=== PATIENT | male | born 1935 | race Caucasian/White ===

== ENCOUNTER 2016-06-11 13:00 | Inpatient (IN) | payer MEDICARE, BC ==
[~2016-06-11] VITALS: Ht 182.9 cm; Wt 104.5 kg
--- NOTE | ~2016-06-11 | HEMODYNAMI ---
PATIENT:MARY MARTINES MEDICAL RECORD: [id number] : 35 LOCATION:[facility] D.2120 ADMISSION DATE: 06/12/16 Generatedon:06/13/20168:49 Patient name: MARY MARTINES Patient #: [id number] SSN: [id number] : 1935 Date of study: 06/13/2016 Page: Of Hemodynamic Procedure Report Patient Data Patient Demographics Procedure consent was obtained First Name: MARY Gender: Male Last Name: BOBBI : 1935 Patient #: [id number] Age: 81 year(s) Race: SSN: [id number] Additional ID: [id number] Contact details Address: [address] [place] [address] [place] State: [place] City: [place] Zip code: [address] Past Medical History Allergies: No known allergies Admission Admission Data Admission Date: 06/12/2016 Admission Time: 15:09 Arrival Date: 06/12/2016 Arrival Time: 15:09 Admit Source: Other Insurance Payor: Medicare Room #: D.2120 Weight (lbs.): 231.49 Weight (kg.): 105 Lab Results Lab Result Date: 06/13/2016 Lab Result Time: 0:00 Biochemistry Name Units Result Min Max BUN mg/dl 1.2 *-(----)-- 7 18 Creatinine mg/dl 1.2 --(---*)-- 0.6 1.3 CBC Name Units Result Min Max Hemoglobin g/dl 15.8 --(--*-)-- 13.5 17.5 Procedure Procedure Types Cath Procedure PCI Procedure Coronary Stent Initial Miscellaneous Procedures Moderate Sedation up to 15 minutes Procedure Description Procedure Date Procedure Date: 06/13/2016 Procedure Start Time: 8:37 Procedure End Time: 8:44 Procedure Staff Name Function Hector Beltre MD Performing Physician Sun Weber RT Scrub Dahiana Toussaint RN Nurse Marion Kaye RT Monitor Procedure Data Cath Procedure Fluoroscopy Diagnostic fluoroscopy Total fluoroscopy Time: 2.2 time: 2.2 min min Diagnostic fluoroscopy Total fluoroscopy dose: dose: 151.07 mGy 151.07 mGy Contrast Material Contrast Material Type Amount (ml) Isovue 370 46 Entry Location Entry Primary Successful Side Size Upsize Upsize Entry Closure Succes sful Closure Location (Fr) 1 (Fr) 2 (Fr) Remarks Device Remarks Femoral Right 6 Fr Exoseal artery Short Estimated blood loss: 5 ml Procedure Complications No complications Procedure Medications Medication Administration Route Dosage Oxygen NC 2 l/min Heparin Flush Bag added to field 2 bags (1000units/500ml NS) Lidocaine 2% added to field 20 Versed I.V. 1 mg Fentanyl I.V. 50 mcg Heparin Bolus I.V. 4000 units Fentanyl I.V. 50 mcg Versed I.V. 1 mg Hemodynamics Rest HGB: 15.8 (g/dl) Heart Rate: 79 (bpm) Snapshots Pre Cath Intra NCS Post Cath Vital Signs Time Heart Resp SPO2 NIBP (mmHg) Rhythm Pain Sedation Rate (ipm) (%) Status Level (bpm) 8:20:55 78 20 97 183/107(162) NSR 0 (11) 10(A) , No pain 8:25:20 66 19 96 165/93(147) NSR 0 (11) 10(A) , No pain 8:29:42 66 15 95 136/80(115) NSR 0 (11) 10(A) , No pain 8:34:04 60 14 95 140/74(114) NSR 0 (11) 10(A) , No pain 8:38:18 60 16 94 128/74(102) NSR 0 (11) 9(A) , No pain 8:42:34 65 15 95 123/66(95) NSR 0 (11) 9(A) , No pain 8:46:58 64 16 96 127/75(110) NSR 0 (11) 9(A) , No pain Medications Time Medication Route Dose Verified Delivered Reason Notes Effectiveness by by 8:21:29 Oxygen NC 2 Hector Dahiana Per physician l/min Patt Toussaint RN 8:27:23 Heparin Flush added 2 Hector Young used for Bag to bags Patt Beltre MD procedure (1000units/500ml field NS) 8:27:33 Lidocaine 2% added 20ml Hector Hector used for to vial Patt Beltre MD procedure field 8:35:01 Fentanyl I.V. 50 Hector Dahiana for sedation mcg Patt Toussaint RN 8:35:05 Versed I.V. 1 mg Hector Dahiana for sedation Patt Toussaint RN 8:37:37 Versed I.V. 1 mg Hector Dahiana for sedation Patt Toussaint RN 8:37:49 Fentanyl I.V. 50 Hector Dahiana for sedation mcg Patt Toussaint RN 8:38:05 Heparin Bolus I.V. 4000 Hector Dahiana for dose units Patt Toussaint RN anticoagulation verified with dr beltre Procedure Log Time Note 8:05:52 Sun Counts RT(R) sent for patient. Start room use. 8:15:57 Time tracking: Regular hours 8:16:00 Plan of Care:Hemodynamics will remain stable., Cardiac rhythm will remain stable., Comfort level will be maintained., Respiratory function will remain adequate., Patient/ family verbilizes understanding of procedure., Procedure tolerated without complication., Recovers from procedure without complications.. 8:16:07 Patient received from PCU to CCL 3 Alert and oriented. Tansferred to table in Supine position. 8:16:08 Warm blankets applied, and jakob hugger turned on for patient comfort. 8:16:08 Correct patient and procedure confirmed by team. 8:16:10 Signed procedure consent form obtained from patient. 8:16:10 ECG and BP/O2 sat monitors applied to patient. 8:16:12 Full Disclosure recording started 8:19:32 Vital chart was started 8:20:48 Baseline sample Acquired. 8:20:53 Rhythm: sinus rhythm 8:21:06 H&P Date Dictated: 06/13/2016 Within 30 days and on chart., H&P Addendum completed by physician on day of procedure. (MUST COMPLETE FOR ALL OUTPATIENTS). 8:21:07 Pre-procedure instructions explained to patient. 8:21:07 Pre-op teaching completed and patient verbalized understanding. 8:21:09 Family in waiting room. 8:21:11 Patient NPO since Midnight. 8:21:19 Is the patient allergic to Iodine/contrast media? No. 8:21:21 Was the patient premedicated? No 8:21:25 Is patient on blood thinner?Yes 8:21:27 ACC The patient was administered the following blood thiners within the last 24 hours: ACCPlavix 8:21:29 Oxygen 2 l/min NC was given by Dahiana Toussaint RN; Per physician; 8:21:48 Patient diabetic? No. 8:21:51 Previous problem with sedation/anesthesia? No ? 8:21:54 Snore? Yes 8:22:02 Sleep apnea? No 8:22:03 Deviated septum? No 8:22:04 Opens mouth fully? Yes 8:22:05 Sticks out tongue? Yes 8:22:06 Airway obstruction? No ? 8:22:12 Dentures? Yes in tight 8:22:16 Pre procedure: right dorsailis pedis pulse 1+ Palpable, but thready & weak; easily obliterated 8:22:19 Patient pain scale 0/10 ?. 8:22:24 IV patent on arrival in left forearm with 0.9% NaCl at [facility]. 8:22:56 Lab Result : BUN 1.2 mg/dl 8:22:56 Lab Result : Creatinine 1.2 mg/dl 8:22:56 Lab Result : Hemoglobin 15.8 g/dl 8:23:03 Lab results completed and on chart. 8:23:20 Right groin area was prepped with chlora-prep and draped in sterile fashion 8:23:21 Alarms reviewed by R. N. 8:23:21 Sharps counted by scrub and verified by R.N. 8:25:31 Use device set Femoral Dx 8:25:32 Acist Syringe opened to sterile field. 8:25:35 Bag Decanter opened to sterile field. 8:25:37 Medline Cath Pack opened to sterile field. 8:25:38 St Jhonatan 260cm J .035 wire opened to sterile field. 8:25:42 Acist Hand Control opened to sterile field. 8:25:43 Acist Manifold opened to sterile field. 8:25:50 Tegaderm 4 x 4 opened to sterile field. 8:26:06 Rivera Whisper J 300cm 0.014 guide wire opened to sterile field. 8:26:07 Terumo 6Fr [place] Sheath opened to sterile field. 8:26:13 Merit BasixCompak Inflation Kit opened to sterile field. 8:27:23 Heparin Flush Bag (1000units/500ml NS) 2 bags added to field was given by Hector Beltre MD; used for procedure; 8:27:33 Lidocaine 2% 20ml vial added to field was given by Hector Beltre MD; used for procedure; 8:30:28 Physician paged 8:32:37 Zero performed for pressure channel P1 8:33:21 Zero performed for pressure channel P1 8:34:15 Physician arrived 8:34:16 --------ALL STOP TIME OUT------ 8:34:17 Final Timeout: patient, procedure, and site verified with staff and physician. All members of the team are in agreement. 8:34:19 Right groin site verified by team. 8:34:25 Physical assessment completed. ASA score P 2 - A patient with mild systemic disease as per Hector Beltre MD. 8:34:28 Sedation plan: IV Moderate Sedation Versed, Fentanyl 8:35:01 Fentanyl 50 mcg I.V. was given by Dahiana Toussaint RN; for sedation; 8:35:05 Versed 1 mg I.V. was given by Dahiana Toussaint RN; for sedation; 8:36:33 Cordis 6FR XBLAD 4.0 guide catheter opened to sterile field. 8:36:58 Procedure started. 8:37:01 Local anesthetic to right femoral artery with Lidocaine 2% by Hector Beltre MD.INITIAL ACCESS ONLY 8:37:09 A 6 Fr Short sheath was inserted into the Right Femoral artery 8:37:37 Versed 1 mg I.V. was given by Dahiana Toussaint RN; for sedation; 8:37:46 6 Fr xblad 4 guide catheter was inserted over the wire 8:37:49 Fentanyl 50 mcg I.V. was given by Dahiana Toussaint RN; for sedation; 8:38:00 LCA angiography performed. 8:38:05 Heparin Bolus 4000 units I.V. was given by Dahiana Toussaint RN; for anticoagulation; dose verified with dr beltre 8:38:09 whisper wire advanced. 8:38:13 Wire advanced across lesion. 8:40:03 Inflation Number: 1 A MedaPhortronic Resolute 2.5 X 14 stent was prepped and advanced across the Mid CX. The stent was deployed at 13 FEDE for 0:10 (min:sec). 8:40:50 Stent catheter was removed intact over wire. 8:41:35 Inflation Number: 2 A Medtronic Resolute 3.0 X 12 stent was prepped and advanced across the Mid CX. The stent was deployed at 13 FEDE for 0:10 (min:sec). 8:42:27 Stent catheter was removed intact over wire. 8:42:28 Wire removed. 8:42:28 Guide catheter removed. 8:42:45 Cordis 6Fr Exoseal opened to sterile field. 8:42:55 Sheath removed intact; hemostasis achieved with Exoseal to the Right Femoral artery. 8:42:56 Procedure ended.(Physican Out) 8:43:20 Fluoroscopy time 02.20 minutes. 8:43:28 Flurop Dose total: 151.07 8:43:28 Fluoroscopy dose: 151.07 mGy 8:43:36 Contrast amount:Isovue 370 46ml. 8:43:43 Sharps counted by scrub and verified by R.N. 8:43:46 Insertion/operative site no bleeding no hematoma. 8:43:53 Post-op/insertion site Right Femoral artery dressed using a 4 x 4 and Tegaderm. 8:43:56 Post right femoral artery:stable 8:43:58 Post Procedure Pulses reassessed and unchanged 8:44:03 Post procedure rhythm: unchanged. 8:44:06 Estimated blood loss: 5 ml 8:44:07 Post procedure instruction explained to patient.Patient verbalizes understanding. 8:44:08 Patient needs reinforcement of post procedure teaching. 8:44:42 Procedure and supply charges have been captured, reviewed, submitted and are correct. 8:44:47 Procedure Complication : No complications 8:44:49 Vital chart was stopped 8:44:50 See physician's report for complete and final results. 8:44:53 Report given to Med II. 8:44:55 Patient transfered to Med II with Stretcher. 8:44:58 Procedure ended. 8:44:58 Full Disclosure recording stopped 8:45:10 ACC-PCI Only Patient was given prescriptions, or instructed by Hector Beltre MD to start/continue the following medications upon discharge: Plavix 8:45:11 End room use (Document Last) 8:45:46 Procedure type changed to Cath procedure, PCI procedure, Coronary Stent Initial, Miscellaneous Procedures, Moderate Sedation up to 15 minutes 8:46:18 Admit Source: Other 8:46:21 Arrival Date: 06/12/2016 3:09:00 PM 8:46:28 Insurance Payor : Medicare Intervention Summary Intervention Notes Time ActionType Lesion and Equipment Action# Pressure Duration Attributes Used 8:40:03 Place stent Mid CX Medtronic 1 13 00:10 Resolute 2.5 X 14 stent 8:41:35 Place stent Mid CX Medtronic 2 13 00:10 Resolute 3.0 X 12 stent Device Usage Item Name Manufacture Quantity Catalog Hospital Part Current Minimal Lot# / Number Charge Number Stock Stock Serial# Code Acist Acist 1 [id number] 20 Syringe [employer] Bag Microtek 1 2002S 412057 79906 806830 5 [facility] Medline Cardinal 1 [id number] 695410 [address] Jhonatan 1 088346 382950 378507 412595 30 260cm J .035 wire Acist Hand Acist 1 76670 550538 990687 632858 5 Fly Fishing [employer] Acist Acist 1 12571 282516 923154 837414 5 Bet[employer] Tegaderm 4 3M 1 [id number] 752422 449634 646023 5 x 4 Rivera Rivera 1 [id number] 346040 523009 494376 5 Whisper J Vascular 300cm 0.014 guide wire Terumo 6Fr Terumo 1 [id number] 813497 944159 043663 40 [place] Sheath Merit Merit 1 [id number] 216554 609464 757267 15 [facility] Medical Inflation Kit Cordis 6FR Cardinal 1 [id number] 660789 600211 201707 3 XBLAD 4.0 Health guide catheter Medtronic Medtronic 1 [id number] [id number] 0 [id number] Resolute 2.5 X 14 stent Medtronic Medtronic 1 [id number] [id number] 7 [id number] Resolute 3.0 X 12 stent Cordis 6Fr Cardinal 1 [id number] 626776 557645 [id number] 10 [facility] Signature Audit [place] Stage Time Signature Unsigned Intra-Procedure 06/13/2016 Marion Kaye 8:48:56 AM RT(R) Signatures Monitor : Marion Kaye RT Signature : Date : Time : [facility] [address] [place] [address]
--- NOTE | ~2016-06-11 | HEMODYNAMI ---
PATIENT:MARY MARTINES MEDICAL RECORD: [id number] : 35 LOC[facility] [facility] [id number] ADMISSION DATE: 06/11/16 Generatedon:06/12/201611:34 Patient name: MARY MARTINES Patient #: [id number] SSN: : 1935 Date of study: 06/12/2016 Page: Of Hemodynamic Procedure Report Patient Data Patient Demographics Procedure consent was obtained First Name: MARY Gender: Male Last Name: BOBBI : 1935 Patient #: [id number] Age: 81 year(s) Race: Additional ID: [id number] Contact details Address: [address] [place] [address] [place] State: [place] City: [place] Zip code: [address] Past Medical History Allergies: No known allergies Admission Admission Data Admission Date: 06/11/2016 Admission Time: 13:00 Room #: [facility] Weight (lbs.): 231.49 Weight (kg.): 105 Lab Results Lab Result Date: 06/12/2016 Lab Result Time: 0:00 Biochemistry Name Units Result Min Max BUN mg/dl 16 --(---*)-- 7 18 Creatinine mg/dl 1.2 --(---*)-- 0.6 1.3 CBC Name Units Result Min Max Hemoglobin g/dl 15.8 --(--*-)-- 13.5 17.5 Procedure Procedure Types Cath Procedure Diagnostic Procedure LHC LHC w/Coronaries PCI Procedure Coronary Stent Initial Miscellaneous Procedures Moderate Sedation up to 30 minutes Procedure Description Procedure Date Procedure Date: 06/12/2016 Procedure Start Time: 11:14 Procedure End Time: 11:31 Procedure Staff Name Function Hector Beltre MD Performing Physician Richard Tena RT Scrub Michael Campos RN Nurse Amilcar Henderson RT Monitor Jp Jones RT Director Of Public Safety Procedure Data Cath Procedure Fluoroscopy Diagnostic fluoroscopy Total fluoroscopy Time: 5.9 time: 5.9 min min Diagnostic fluoroscopy Total fluoroscopy dose: 851 dose: 851 mGy mGy Contrast Material Contrast Material Type Amount (ml) Isovue 300 121 Entry Location Entry Primary Successful Side Size Upsize Upsize Entry Closure Gallagher ccessful Closure Location (Fr) 1 (Fr) 2 (Fr) Remarks Device Remarks Radial Right 6 Fr Mechanical artery Short Compression Diagnostic catheters Device Type Used For End Catheter Placement Terumo 5Fr Lc 110cm LV Angiography catheter Diagnostic Infinity 5Fr Right Coronary AR 2 MOD catheter Angiography Procedure Complications No complications Procedure Medications Medication Administration Route Dosage Oxygen NC 2 l/min Lidocaine 2% added to field 20 Heparin Flush Bag added to field 2 bags (1000units/500ml NS) 0.9% NaCl I.V. 100 ml/hr Versed I.V. 1 mg Fentanyl I.V. 50 mcg Radial Cocktail I.A. 1 syringe (Verapomil 2mg/Nitro 400mcg/Heparin 1500units) Versed I.V. 1 mg Fentanyl I.V. 50 mcg Heparin Bolus I.V. 4000 units Plavix P.O. 75 mg Hemodynamics Rest HGB: 15.8 (g/dl) Heart Rate: 75 (bpm) Snapshots Pre Cath Intra NCS Post Cath Vital Signs Time Heart Resp SPO2 etCO2 FS0idek NIBP (mmHg) Rhythm Pain Sedatio n Rate (ipm) (%) (mmHg) (mmHg) Status Level (bpm) 10:51:37 79 16 95 0 0 200/105(169) NSR 0 (11) 10(A) , No pain 10:56:06 72 21 95 0 0 194/116(131) NSR 0 (11) 10(A) , No pain 11:00:25 64 16 96 0 0 143/78(115) NSR 0 (11) 10(A) , No pain 11:04:40 55 17 94 0 0 124/76(96) NSR 0 (11) 10(A) , No pain 11:08:53 55 17 96 0 0 125/72(95) NSR 0 (11) 10(A) , No pain 11:13:10 57 16 93 0 0 121/65(82) NSR 0 (11) 9(A) , No pain 11:17:19 64 17 94 0 0 94/55(69) NSR 0 (11) 9(A) , No pain 11:21:25 64 16 93 0 0 108/60(86) NSR 0 (11) 9(A) , No pain 11:25:37 66 16 94 0 0 99/55(77) NSR 0 (11) 9(A) , No pain 11:29:39 69 16 94 0 0 109/76(97) NSR 0 (11) 10(A) , No pain Medications Time Medication Route Dose Verified Delivered Reason Note s Effectiveness by by 10:57:46 Oxygen NC 2 l/min Hector Buffie used for Patt Campos RN procedure 10:57:53 Lidocaine 2% added 20ml Hectortrino Young for local to vial Patt Beltre MD anesthetic field 10:57:58 Heparin Flush added 2 bags Hector Young used for Bag to Patt Beltre MD procedure (1000units/500ml field NS) 10:58:07 0.9% NaCl I.V. 100 Hectortrino Montgomeryie Per physician ml/hr Patt Campos RN 11:08:35 Versed I.V. 1 mg Hector Montgomeryie for sedation Patt Campos RN 11:08:42 Fentanyl I.V. 50 mcg Hector Montgomeryie for sedation Patt Campos RN 11:15:28 Radial Cocktail I.A. 1 Hector Hector for (Verapomil syringe Patt Beltre MD vasodilation 2mg/Nitro 400mcg/Heparin 1500units) 11:15:33 Versed I.V. 1 mg Hectortrino Montgomeryie for sedation Patt Campos RN 11:15:36 Fentanyl I.V. 50 mcg Hector Rodriguez for sedation Patt Campos RN 11:22:13 Heparin Bolus I.V. 4000 Hector Buffie for units Patt Campos RN anticoagulation 11:33:03 Plavix P.O. 75 mg Hector Buffie for Patt Campos RN antiplatelet therapy Procedure Log Time Note 10:30:41 Jp Jones RT(R) sent for patient. Start room use. 10:40:15 Diagnostic Cath Status : Elective 10:40:49 Time tracking: Regular hours 10:40:52 Plan of Care:Hemodynamics will remain stable., Cardiac rhythm will remain stable., Comfort level will be maintained., Respiratory function will remain adequate., Patient/ family verbilizes understanding of procedure., Procedure tolerated without complication., Recovers from procedure without complications.. 10:41:00 Patient received from PCU to CCL 1 Alert and oriented. Tansferred to table in Supine position. 10:41:00 Warm blankets applied, and jakob hugger turned on for patient comfort. 10:41:01 Correct patient and procedure confirmed by team. 10:41:02 Signed procedure consent form obtained from patient. 10:41:03 ECG and BP/O2 sat monitors applied to patient. 10:41:04 Full Disclosure recording started 10:49:16 Vital chart was started 10:49:27 Baseline sample Acquired. 10:49:30 Rhythm: sinus rhythm 10:50:42 H&P Date Dictated: 06/11/2016 Within 30 days and on chart.. 10:50:44 Pre-procedure instructions explained to patient. 10:50:44 Pre-op teaching completed and patient verbalized understanding. 10:50:49 Family in patients room. 10:50:50 Patient NPO since Midnight. 10:51:05 Patient allergic to No known allergies 10:51:08 Is the patient allergic to Iodine/contrast media? No. 10:51:11 Is patient on blood thinner?Yes 10:51:16 ACC The patient was administered the following blood thiners within the last 24 hours: ACCPlavix 10:51:16 ACC The patient was administered the following blood thiners within the last 24 hours: ACCAspirin 10:51:18 Patient diabetic? No. 10:51:19 ----Pre-sedation anethsthesia assessment.---- 10:51:24 Previous problem with sedation/anesthesia? No ? 10:51:27 Snore? Yes 10:51:28 Sleep apnea? No 10:51:30 Deviated septum? No 10:51:31 Opens mouth fully? Yes 10:51:33 Sticks out tongue? Yes 10:51:36 Airway obstruction? No ? 10:51:39 Dentures? No ? 10:51:43 Pre procedure: right dorsailis pedis pulse 1+ Palpable, but thready & weak; easily obliterated 10:51:46 Modified David's test Ulnar < 7 seconds 10:51:48 Patient pain scale 0/10 ?. 10:51:59 IV patent on arrival in left hand with 0.9% NaCl at 10ml/hr. 10:52:24 Lab Result : Creatinine 1.2 mg/dl 10:52:24 Lab Result : BUN 16 mg/dl 10:52:24 Lab Result : Hemoglobin 15.8 g/dl 10:52:27 Lab results completed and on chart. 10:52:31 Right Radial & Right Groin area was prepped with chlora-prep and draped in sterile fashion 10:52:32 Alarms reviewed by R. N. 10:52:32 Sharps counted by scrub and verified by R.N. 10:53:59 Patient Weight : 231.49 lbs 10:54:21 Use device set Radial Dx 10:54:22 Acist Syringe opened to sterile field. 10:54:22 Medline Cath Pack opened to sterile field. 10:54:23 Bag Decanter opened to sterile field. 10:54:23 Terumo 6Fr Slender Glidesheath opened to sterile field. 10:54:23 St Jhonatan 260cm J .035 wire opened to sterile field. 10:54:24 Acist Hand Control opened to sterile field. 10:54:24 Acist Manifold opened to sterile field. 10:54:25 Tegaderm 4 x 4 opened to sterile field. 10:57:46 Oxygen 2 l/min NC was given by Michael Campos RN; used for procedure; 10:57:53 Lidocaine 2% 20ml vial added to field was given by Hector Beltre MD; for local anesthetic; 10:57:58 Heparin Flush Bag (1000units/500ml NS) 2 bags added to field was given by Hector Beltre MD; used for procedure; 10:58:07 0.9% NaCl 100 ml/hr I.V. was given by Michael Campos RN; Per physician; 11:01:39 Zero performed for pressure channel P1 11:05:02 --------ALL STOP TIME OUT------ 11:05:03 Final Timeout: patient, procedure, and site verified with staff and physician. All members of the team are in agreement. 11:05:04 Right Radial & Right Groin site verified by team. 11:05:07 Physical assessment completed. ASA score P 2 - A patient with mild systemic disease as per Hector Beltre MD. 11:05:13 Sedation plan: IV Moderate Sedation Versed, Fentanyl 11:08:35 Versed 1 mg I.V. was given by Michael Campos RN; for sedation; 11:08:42 Fentanyl 50 mcg I.V. was given by Michael Campos RN; for sedation; 11:13:54 Procedure started. 11:14:07 Local anesthetic to right radial artery with Lidocaine 2% by Hector Beltre MD.INITIAL ACCESS ONLY 11:14:17 A 6 Fr Short sheath was inserted into the Right Radial artery 11:15:28 Radial Cocktail (Verapomil 2mg/Nitro 400mcg/Heparin 1500units) 1 syringe I.A. was given by Hector Beltre MD; for vasodilation; 11:15:33 Versed 1 mg I.V. was given by Michael Campos RN; for sedation; 11:15:36 Fentanyl 50 mcg I.V. was given by Michael Campos RN; for sedation; 11:15:52 A Terumo 5Fr Lc 110cm catheter was advanced over the wire and used for LV Angiography. 11:15:58 LV angiography performed. 11:16:07 LV hemodynamics recorded. 11:16:12 LV gram done using CORDERO 11:16:29 EF : 60 % 11:16:55 LCA angiography performed. 11:17:23 Rivera Nonstop Gamesisper J 300cm 0.014 guide wire opened to sterile field. 11:17:24 ADC TherapeuticsixCompak Inflation Kit opened to sterile field. 11:19:07 Catheter removed. 11:19:23 A Diagnostic Infinity 5Fr AR 2 MOD catheter was advanced over the wire and used for Right Coronary Angiography. 11:20:20 RCA angiography performed. 11:20:21 Catheter removed. 11:21:19 Cordis 6FR XBLAD 3.5 guide catheter opened to sterile field. 11:21:32 ACC PCI Site: mLAD has 90% stenosis. 11:21:34 ACC Pre-intervention LESTER Flow is 3. 11:22:13 Heparin Bolus 4000 units I.V. was given by Michael Campos RN; for anticoagulation; 11:24:03 6 Fr XBLAD 3.5 guide catheter was inserted over the wire 11:24:55 MEC DynamicsISPER wire advanced. 11:25:21 Inflation Number: 1 A Gravytronic Resolute 3.0 X 38 stent was prepped and advanced across the Mid LAD. The stent was deployed at 13 FEDE for 0:12 (min:sec). 11::35 Stent catheter was removed intact over wire. 11::58 Procedure type changed to Cath procedure, Diagnostic procedure, LHC, LHC w/Coronaries, PCI procedure, Coronary Stent Initial, Miscellaneous Procedures, Moderate Sedation up to 30 minutes 11:27:20 Inflation Number: 1 A Medtronic Resolute 2.5 X 26 stent was prepped and advanced across the Mid LAD1. The stent was deployed at 13 FEDE for 0:10 (min:sec). 11:27:40 Contrast amount:Isovue 300 121ml. 11:28:03 Sheath removed intact; hemostasis achieved with Mechanical Compression to the Right Radial artery. 11:28:06 Procedure ended.(Physican Out) 11:30:18 Fluoroscopy time 05.90 minutes. 11:30:24 Fluoroscopy dose: 851 mGy 11:30:24 Flurop Dose total: 851 11:30:29 Sharps counted by scrub and verified by R.N. 11:30:31 TR band inflated with 10cc of air. 11:30:32 Insertion/operative site no bleeding no hematoma. 11:30:47 Post right radial artery:stable 11:30:48 Post Procedure Pulses reassessed and unchanged 11:30:51 Post procedure rhythm: sinus rhythm 11:30:52 Post procedure instruction explained to patient.Patient verbalizes understanding. 11:31:15 Terumo TR Band Standard opened to sterile field. 11:31:25 Procedure and supply charges have been captured, reviewed, submitted and are correct. 11:31:28 Procedure Complication : No complications 11:31:30 Vital chart was stopped 11::31 See physician's report for complete and final results. 11:31:32 Report given to PCU. 11:31:36 Patient transfered to PCU with Bed. 11::38 Procedure ended. 11::38 Full Disclosure recording stopped 11::43 End room use (Document Last) 11:33:03 Plavix 75 mg P.O. was given by Michael Campos RN; for antiplatelet therapy; Intervention Summary Intervention Notes Time ActionType Lesion and Equipment Action# Pressure Duration Attributes Used 11:25:21 Place stent Mid LAD Medtronic 1 13 00:12 Resolute 3.0 X 38 stent 11:27:20 Place stent Mid LAD1 Medtronic 1 13 00:10 Resolute 2.5 X 26 stent Device Usage Item Name Manufacture Quantity Catalog Hospital Part Current Minimal Lot# / Number Charge Number Stock Stock Serial# Code Acist Acist 1 [id number] [id number] 508641 713293 20 Syringe Medical Systems Inc Medline Cardinal 1 [id number] 797215 33802 234496 5 Cath Pack Health Bag Microtek 1 2002S 434066 50560 987190 5 [employer] Terumo 6Fr Terumo 1 [id number] 121569 175888 589318 [address] St Jhonatan 1 424338 707181 030512 333325 30 260cm J .035 wire Acist Hand Acist 1 72882 453568 109122 493502 5 Control Medical Systems Inc Acist Acist 1 36608 896976 726272 203216 5 Manifold Medical Systems Inc Tegaderm 4 3M 1 1626W 639301 156509 442202 5 x 4 Terumo 5Fr Terumo 1 40-2583 672063 497875 254330 5 Lc 110cm catheter Rivera Rivera 1 [id number] 733750 428513 748214 5 Whisper J Vascular 300cm 0.014 guide wire Merit Merit 1 [id number] 550266 265261 057107 15 [facility] Inflation [facility] Diagnostic Cardinal 1 [id number] 417714 868444 492215 20 Un[employer] Health 5Fr AR 2 MOD catheter Cordis 6FR Cardinal 1 [id number] 675779 181567 528656 10 XBLAD 3.5 Health guide catheter Medtronic Medtronic 1 [id number] 090914 115876 0 [id number] Resolute 3.0 X 38 stent Medtronic Medtronic 1 [id number] 409914 060240 5 [id number] Resolute 2.5 X 26 stent Terumo TR Terumo 1 [id number] 999876 786899 535788 40 Band Standard Signature Audit [place] Stage Time Signature Unsigned Intra-Procedure 06/12/2016 Amilcar Henderson 11:33:57 AM RT(R) Signatures Monitor : Amilcar Henderson RT Signature : Date : Time : [place] [address] [place] [address]
[2016-06-11 13:34] VITALS: Ht 182.9 cm; Wt 104.5 kg
[2016-06-11] MEDS ORDERED: COZAAR100 MG PO (14:50)
[2016-06-11] MEDS ORDERED: OMEPRAZOLE20 M1 PO (14:50)
[2016-06-11] MEDS ORDERED: ZOCOR20 MG PO (14:51)
[2016-06-11 15:01] LABS: BASOPHILS 0.3 % (0.0-2.0); EOSINOPHILS 1.6 % (0-7); HEMATOCRIT 45.2 % (42.0-54.0); HEMOGLOBIN 15.8 g/dL (13.5-17.5); IMMATURE GRANULOCYTES 0.2 % (0-5); LYMPHOCYTES 18.3 % (15-50); MCH 30.9 pg (26.0-34.0); MCV 88.3 fL (80.0-100.0); MEAN PLATELET VOLUME 10.5 fL (7.4-10.4); MONOCYTES 9.5 % (2-11); NEUTROPHILS 70.1 % (40-80); PLATELET COUNT 146 10x3/uL (130-400); RBC 5.12 10x6/uL (4.20-6.10); RDW 12.8 % (11.5-14.5); WBC 6.1 10x3/uL (4.8-10.8)
[2016-06-11] MEDS ORDERED: ASPIRIN81 MG PO (15:02)
--- NOTE | 2016-06-11 15:05 | NUR ---
RATIONALE FOR SCD'S EXPLAINED. REFUSED SCD'S
[2016-06-11 15:33] LABS: ALBUMIN 3.9 g/dL (3.4-5.0); ALKALINE PHOSPHATASE 54 U/L (46-116); ALT (SGPT) 28 U/L (10-68); BILIRUBIN - TOTAL 0.58 mg/dL (0.2-1.3); CALC OSMOLALITY 282 mosm/kg (275-300); CALCIUM 8.5 mg/dL (8.5-10.1); CARBON DIOXIDE 30.5 mmol/L (21.0-32.0); CHLORIDE - SERUM 106 mmol/L (98-107); CKMB 6.6 U/L (0.0-3.6); CREATINE KINASE 176 UL (21-232); CREATININE - SERUM 1.2 mg/dL (0.6-1.3); GLUCOSE 89 mg/dL (74-106); POTASSIUM - SERUM 4.8 mmol/L (3.5-5.1); PROTEIN - SERUM 7.1 g/dL (6.4-8.2); SODIUM 142 mmol/L (136-145); UREA NITROGEN 16 mg/dL (7-18); eGFR NON AFRICAN AMERICAN 62 mL/min (90-120)
[2016-06-11 15:36] LABS: TROPONIN-I < 0.017 ng/mL (0.000-0.060)
[2016-06-11 16:16] VITALS: BP 186/90
--- NOTE | 2016-06-11 19:30 | NUR ---
RESTING QUIETLY RESP UNLABORED AAOX4 DENIES ANY NEEDS OR DISCOMFORT AT THIS TIME NAD NOTED
[2016-06-11 20:20] LABS: CKMB 4.6 U/L (0.0-3.6); CREATINE KINASE 154 UL (21-232); TROPONIN-I < 0.017 ng/mL (0.000-0.060)
[2016-06-11 21:15] VITALS: BP 190/83
[2016-06-11 23:00] VITALS: BP 139/69
[2016-06-12 02:51] LABS: CKMB 3.5 U/L (0.0-3.6); CREATINE KINASE 110 UL (21-232)
--- NOTE | 2016-06-12 02:53 | NUR ---
RESTING QUIETLY NAD NOTED
[2016-06-12 03:02] LABS: TROPONIN-I < 0.017 ng/mL (0.000-0.060)
[2016-06-12 08:00] VITALS: BP 161/89
--- NOTE | 2016-06-12 10:31 | NUR ---
CATH CALLED FOR PRE-OP AND IT WAS COMPLETED. PT READY AND CATH NURSE APARNA AT BEDSIDE. NO FURTHER NEEDS. WILL CTM.
--- NOTE | 2016-06-12 13:00 | NUR ---
PT BACK FROM SCARRER. 2 STENTS PLACED TO THE LAD VIA R.WRIST ACCESS. PT HAS TR BAND IN PLACE WITH 12CC OF AIR IN PLACE. NO S/S OF BLEEDING NOTED. VSS AND BEING RECORDED Q15MIN PER POLICY. PERIPHERAL PULSES INTACT. FAMILY AT BEDSIDE. NO CURRENT NEEDS AT THIS TIME. CL IN REACH. WILL CTM.
--- NOTE | 2016-06-12 15:31 | NUR ---
VSS. PERIPHERAL PULSES INTACT. PT READY TO USE BR. VOIDED CLEAR YELLOW URINE W/O ANY DIFFICULTIES. REMOVED HALF AIR FROM R.WRIST TR BAND NO BLEEDING NOTED, WILL REMOVE ANOTHER HALF IN 30MINS. PT DENIES ANY CURRENT PAIN OR FURTHER NEEDS. CL IN REACH. WILL CTM.
[2016-06-12 16:00] VITALS: BP 135/72
--- NOTE | 2016-06-12 16:00 | NUR ---
REMOVED ANOTHER HALF OF AIR FROM R.WRIST TR BAND. NO BLEEDING NOTED. WILL CPOC.
--- NOTE | 2016-06-12 16:30 | NUR ---
REMOVED LAST 3CC OF AIR FROM TR BAND. NO BLEEDING NOTED. PT SITTING UP IN BED EATING DINNER. DENIES ANY CURRENT PAIN OR NEEDS. WILL CTM.
[2016-06-12 19:49] VITALS: BP 135/78
[2016-06-13] VITALS (8 sets, daily range): BP systolic 119–185; BP diastolic 61–82
[2016-06-13 06:12] LABS: BASOPHILS 0.2 % (0.0-2.0); EOSINOPHILS 2.6 % (0-7); HEMATOCRIT 43.3 % (42.0-54.0); HEMOGLOBIN 14.9 g/dL (13.5-17.5); IMMATURE GRANULOCYTES 0.2 % (0-5); LYMPHOCYTES 24.1 % (15-50); MCH 30.3 pg (26.0-34.0); MCHC 34.4 g/dL (31.0-37.0); MCV 88.2 fL (80.0-100.0); MEAN PLATELET VOLUME 10.8 fL (7.4-10.4); MONOCYTES 11.3 % (2-11); NEUTROPHILS 61.6 % (40-80); PLATELET COUNT 125 10x3/uL (130-400); RBC 4.91 10x6/uL (4.20-6.10); RDW 13.1 % (11.5-14.5); WBC 6.2 10x3/uL (4.8-10.8)
[2016-06-13 06:28] LABS: ANION GAP 11.8 mmol/L (8-16); CALCIUM 8.2 mg/dL (8.5-10.1); CARBON DIOXIDE 27.3 mmol/L (21.0-32.0); CREATININE - SERUM 1.4 mg/dL (0.6-1.3); POTASSIUM - SERUM 4.1 mmol/L (3.5-5.1)
--- NOTE | 2016-06-13 07:30 | NUR ---
RECEIVED PT IN BED AAOX4 RESP UNLABORED DENIES ANY NEEDS OR DISCOMFORT
--- NOTE | 2016-06-13 08:05 | NUR ---
TO MATH TUTOR IN STABLE CONDITION VIA BED
--- NOTE | 2016-06-13 08:59 | NUR ---
RECEIVED PT BACK TO ROOM FROM PHOTOGRAPHY COORDINATOR VIA BED IN STABLE CONDITION RT ANUSHA BOYKIN C/D/I SOFT AROUND SITE RLE PULSE + VSS NAD NOTED
[2016-06-13] MEDS ORDERED: PLAVIX75 MG PO (13:31)
--- NOTE | 2016-06-13 15:00 | NUR ---
REVIEWED DISCHARGE INSTRUCTIONS WITH PT AND BOTH STATE UNDERSTANDING COPY GIVEN SALINE LOCK DCD TO LT HAND WITH 20 GA IV CATHETER INTACT NO REDNESS OR EDEMA NOTED TO SITE PT DISCHARGED HOME IN STABLE CONDITION LEFT UNIT VIA W/C WITH ALL PERSONAL BELONGINGS
--- NOTE | 2016-06-21 08:46 | OP ---
PATIENT NAME: MARY MARTINES MEDICAL RECORD: [id number] :35 LOCATION:D.M2 D.2120 ADMISSION DATE:06/12/16 SURGEON: LEYDI VIDALES MD DATE OF OPERATION: 06/13/2016 PROCEDURES: 1. PTCA stent left circumflex. 2. Selective coronary angiography. INDICATION: Angina and coronary artery disease. PROCEDURE IN DETAIL: After informed consent was obtained and after a detailed explanation of the risks, benefits as well as alternative therapies, the patient elected to proceed with angiogram and angioplasty. The right femoral area was prepped and draped in normal sterile fashion. The right femoral artery was cannulated via modified Seldinger technique with placement of 6-[place] sheath. All catheters exchanged through this sheath. FINDINGS: The left circumflex has 90% followed by a 75% stenosis, was addressed with a 3.0 x 12 and 2.5 x 14 both drug-eluting stents Resolute. Result was 0% residual stenosis. OVERALL IMPRESSION: Successful percutaneous transluminal coronary angioplasty stent of the left circumflex going from 90% initial stenosis to 0% residual. TRANSINT:[id number] Voice Confirmation ID: [id number] DOCUMENT ID: [id number] LEYDI VIDALES MD at 0846 CC: [id number] DICTATION DATE: 06/13/16 0847 MINUTE CLERK: 06/13/16 1130 DIS IN 06/13/16 [facility] [address] [place] [address]
--- NOTE | 2016-06-21 08:46 | CN ---
PATIENT NAME:MARY MARTINES MEDICAL RECORD: [id number] : 35 LOCATION:D. D.2120 ADMIT DATE: 06/12/16 ACCOUNT: [id number] CONSULTING PHYSICIAN: LEYDI VIDALES MD REFERRING PHYSICIAN: THOMAS ROSA MD DATE OF CONSULTATION: 06/11/2016 Cardiology Consultation ADMITTING DIAGNOSES: 1. Chest pain compatible with angina. 2. Hypertension. HISTORY OF PRESENT ILLNESS: This is a gentleman with no previous cardiac history for the past 3 days, has been having a fairly classic chest pain, worse when he exerts himself across the left anterior chest and started radiating to his jaw area today, associated with shortness of breath as well. His troponin is normal. Serial EKGs are with ST-T changes in the inferolateral distribution. PHYSICAL EXAMINATION: GENERAL APPEARANCE: Well-nourished, well-developed, appears stated age. Level of distress, comfortable. PSYCHIATRIC: Mental status, alert, normal affect. Orientation, oriented to time, place and person. EYES: Lids and conjunctiva, noninjected. No discharge, no pallor. ENT: Lips, teeth, gums, normal dentition. Oropharynx, no cyanosis, no pallor. NECK: Carotid arteries, bilateral normal upstroke, no bruits, no thrills. JUGULAR VEINS: No jugular venous pressure or distention. CERVICAL LYMPH NODES: Nontender, nonenlarged. THYROID: Not enlarged. Nontender. No nodules. LUNGS: Respiratory effort, unlabored. CHEST: Normal curvature. No thoracic deformity. No chest wall tenderness. Percussion, resonant. Auscultation, clear. No wheezes, no rales, no rhonchi. CARDIOVASCULAR: Precordial exam, nondisplaced. No heaves or pericardial thrills. Rate and rhythm, regular. Heart sounds, normal S1, normal S2. No S3, no gallop, no rub. Systolic murmur, not heard. Diastolic murmur, not heard. EXTREMITIES: No cyanosis, no edema. Peripheral pulses, full and equal in all extremities, except as noted. No bruits appreciated. ABDOMEN: Soft, nondistended. Normal aorta. No bruit. Nontender. No masses. Liver, nontender, no hepatomegaly. Spleen, nontender, no splenomegaly. MUSCULOSKELETAL: No joint tenderness. No joint swelling. No erythema. NEUROLOGICAL: Normal gait, normal strength, normal tone. SKIN: Warm and dry. REVIEW OF SYSTEMS: The patient reports easy bruising but reports no swollen glands. The patient reports no fever, no night sweats, no significant weight gain, no significant weight loss. No significant exercise tolerance. The patient reports no dry eyes, no irritation, no vision change. Patient reports no difficulty hearing and no ear pain. Patient reports no frequent nose bleeds or nose and sinus problems. Patient reports on arm pain on exertion. No shortness of breath while lying down. No history of heart murmur. Patient reports no cough, no wheezing or coughing up blood. Patient reports no abdominal pain, no vomiting. Normal appetite. No diarrhea and not vomiting blood. No nausea and no constipation. Patient reports no incontinence. No difficulty urinating. No hematuria. No increased frequency. Patient reports CONSULT REPORT [id number] MARY MARTINES no muscle aches. No weakness, no arthralgias, no back pain. No swelling of the extremities. Patient reports no abnormal mole, no jaundice, no rashes. Reports no loss of consciousness. No weakness and no numbness. No seizures, dizziness, or headaches. The patient reports no depression, no sleep disturbance, feeling safe in a relationship and no alcohol abuse. Patient reports on fatigue. Reports no runny nose or sinus pressure. No itching, no hives, and no frequent sneezing. OVERALL IMPRESSION: Chest pain compatible with angina with EKG changes, most likely has hemodynamically significant coronary artery disease. We will proceed with coronary angiography. Further care depends upon findings of the angiography. TRANSINT:[id number] Voice Confirmation ID: [id number] DOCUMENT ID: [id number] LEYDI VIDALES MD at 0846 CC: [id number] DICTATION DATE: 06/11/16 1548 APPEALS BOARD REFEREE: 06/11/16 2234 DIS IN 06/13/16 [place] [id number] [place] [id number]
--- NOTE | 2016-06-21 08:46 | DS ---
PATIENT:MARY MARTINES :35 MEDICAL RECORD: [id number] DISCHARGE SUMMARY ADMISSION DATE: 06/12/16 DISCHARGE DATE: 06/13/16 DISCHARGE DIAGNOSES: 1. Angina. 2. Coronary artery disease. 3. Percutaneous transluminal coronary angioplasty stent left anterior descending and circumflex this admission. HOSPITAL COURSE: This is a gentleman who presents with anginal symptomatology and found to have severe 2-vessel coronary artery disease, underwent successful PTCA stent of the LAD and circumflex. He was discharged home with the addition of aspirin and Plavix to his medical regimen. We will follow up with [facility] in 1 month. TRANSINT:[id number] Voice Confirmation ID: [id number] DOCUMENT ID: [id number] LEYDI VIDALES MD at 0846 CC: [id number] DICTATION DATE: 06/13/1646 FABRIC WORKER: 06/13/162039 DIS IN 06/13/16 [place] [id number] [place] [address]
--- NOTE | 2016-06-21 08:46 | OP ---
PATIENT NAME: MARY MARTINES MEDICAL RECORD: [id number] :35 LOCATION:D.M2 D.2120 ADMISSION DATE:06/12/16 SURGEON: LEYDI VIDALES MD DATE OF OPERATION: 06/12/2016 PROCEDURES: 1. PTCA stent LAD. 2. Left heart catheterization. 3. Selective coronary angiography. 4. Left ventriculogram. INDICATION: Angina and coronary artery disease. PROCEDURE IN DETAIL: After informed consent was obtained and after detailed explanation of risks, benefits as well as alternative therapies, the patient elected to proceed with angiogram and angioplasty. The right femoral area was prepped and draped in normal sterile fashion. The right femoral artery was cannulated via modified Seldinger technique with placement of 6-Somali sheath. All catheters exchanged through this sheath. FINDINGS: Left ventriculogram was performed in standard 30-degree CORDERO view reveals preserved cardiac wall motion, ejection fraction estimated 60%. SELECTIVE CORONARY ANGIOGRAPHY: 1. Left main showed no significant angiographic disease. 2. Left anterior descending has 90% stenosis throughout the entire proximal mid vessel and multiple areas of 80% to 90% stenosis. 3. The left circumflex has 90% to 95% stenosis in the mid vessel. 4. Right coronary has moderate irregularities, but no flow-limiting stenosis. PTCA STENT OF THE LAD: The stent used was a 3.0 x 38 and a 2.5 x 26, both Resolute stents. Result was 0% residual stenosis. OVERALL IMPRESSION: Successful percutaneous transluminal coronary angioplasty stent of the left anterior descending going from a long area of 90% stenosis to 0% residual stenosis. PLAN: PTCA stent of the left circumflex in the near future. TRANSINT:[id number] Voice Confirmation ID: [id number] DOCUMENT ID: [id number] LEYDI VIDALES MD at 0846 CC: [id number] DICTATION DATE: 06/12/16 1134 DICTATING TRANSCRIBING MACHINE SERVICER: 06/12/16 1819 DIS IN 06/13/16 [place] [id number]
== END 2016-06-13 15:00 | disposition home or self-care (01) | DRG 246 ==
LOC: OBSVTIME → UNDOADMOB 13:00 → D.OPS 13:00 → D.M2 13:00 → OBSVTIME 13:00 → D.OPS 06-12 00:07 → EDSTATUS 06-12 07:30 → D.M2 06-12 15:09
PROVIDERS: Internal Medicine Interventional Cardiology; ADMIT Family Medicine
PROC: 4A023N7 Measurement of Cardiac Sampling and Pressure, Left Heart, Percutaneous Approach (ICD-10-PCS; 2016-06-12)
PROC: B2111ZZ Fluoroscopy of Multiple Coronary Arteries using Low Osmolar Contrast (ICD-10-PCS; 2016-06-12)
PROC: B2151ZZ Fluoroscopy of Left Heart using Low Osmolar Contrast (ICD-10-PCS; 2016-06-12)
PROC: 027035Z Dilation of Coronary Artery, One Artery with Two Drug-eluting Intraluminal Devices, Percutaneous Approach (ICD-10-PCS; principal; 2016-06-12 07:30)
PROC: 027035Z Dilation of Coronary Artery, One Artery with Two Drug-eluting Intraluminal Devices, Percutaneous Approach (ICD-10-PCS; 2016-06-13)
DX: I25.119 Atherosclerotic heart disease of native coronary artery with unspecified angina pectoris (principal); I10 Essential (primary) hypertension; E78.5 Hyperlipidemia, unspecified; K21.9 Gastro-esophageal reflux disease without esophagitis; N40.0 Benign prostatic hyperplasia without lower urinary tract symptoms

== ENCOUNTER 2016-06-15 00:10 | Observation (INO) | payer MEDICARE, BC ==
[2016-06-11 13:34] VITALS: BMI 31.2
[~2016-06-15 00:10] MED LIST: ASPIRIN81 MG PO; COZAAR100 MG PO; OMEPRAZOLE20 M1 PO; PLAVIX75 MG PO; ZOCOR20 MG PO
[2016-06-15 00:57] LABS: BASOPHILS 0.1 % (0.0-2.0); HEMATOCRIT 42.4 % (42.0-54.0); HEMOGLOBIN 14.8 g/dL (13.5-17.5); IMMATURE GRANULOCYTES 0.3 % (0-5); LYMPHOCYTES 19.8 % (15-50); MCH 30.3 pg (26.0-34.0); MCHC 34.9 g/dL (31.0-37.0); MCV 86.7 fL (80.0-100.0); MEAN PLATELET VOLUME 10.6 fL (7.4-10.4); MONOCYTES 10.3 % (2-11); NEUTROPHILS 68.5 % (40-80); PLATELET COUNT 127 10x3/uL (130-400); RBC 4.89 10x6/uL (4.20-6.10)
[2016-06-15 01:14] LABS: ALBUMIN 3.8 g/dL (3.4-5.0); ALKALINE PHOSPHATASE 56 U/L (46-116); ALT (SGPT) 27 U/L (10-68); BILIRUBIN - TOTAL 0.49 mg/dL (0.2-1.3); CALC OSMOLALITY 278 mosm/kg (275-300); CALCIUM 8.7 mg/dL (8.5-10.1); CARBON DIOXIDE 25.5 mmol/L (21.0-32.0); CHLORIDE - SERUM 106 mmol/L (98-107); CREATININE - SERUM 1.3 mg/dL (0.6-1.3); GLUCOSE 111 mg/dL (74-106); POTASSIUM - SERUM 3.9 mmol/L (3.5-5.1); PROTEIN - SERUM 7.1 g/dL (6.4-8.2); SODIUM 138 mmol/L (136-145); UREA NITROGEN 17 mg/dL (7-18); eGFR NON AFRICAN AMERICAN 56 mL/min (90-120)
[2016-06-15 01:25] LABS: AMYLASE - SERUM 98 U/L (25-115); CHOL - HDL RATIO 2.9 ratio (2.3-4.9); CHOLESTEROL, TOTAL 151 mg/dL (0-200); CKMB 4.5 U/L (0.0-3.6); CREATINE KINASE 149 UL (21-232); HDL CHOLESTEROL 52 mg/dL (32-96); LDL CHOLESTEROL 85 mg/dL (0-100); LDL-HDL RATIO 1.6 ratio (1.5-3.5); LIPASE 113 U/L (73-393); MAGNESIUM - SERUM 1.8 mg/dL (1.8-2.4); PHOSPHOROUS 2.9 mg/dL (2.5-4.9); PRO BNP 101 pg/mL (0-450); TRIGLYCERIDE 70 mg/dL (30-200)
[2016-06-15 02:42] LABS: TROPONIN-I 0.036 ng/mL (0.000-0.060)
[2016-06-15 05:23] VITALS: BP 193/89
--- NOTE | 2016-06-15 06:15 | NUR ---
PT C/O CHEST PAIN DR WHIPPLE ON FLOOR AND SPOKE WITH HIM AND RECIVED ORDER FOR MORPHINE 2MG IV Q4HP FOR CHEST PAIN ADMN ORDERED AND WILL MONITOR
--- NOTE | 2016-06-15 07:21 | NUR ---
PT SITTING UP IN BED DENIES NEEDS AT BEDSIDE WILL CONT TO MONITOR.
[2016-06-15 08:09] VITALS: BP 187/87
[2016-06-15 09:01] LABS: TROPONIN-I 0.036 ng/mL (0.000-0.060)
[2016-06-15 11:36] VITALS: BP 169/93
[2016-06-15] MEDS ORDERED: ISOSORBIDE MONO30 M1 PO (12:24)
[2016-06-15] MEDS ORDERED: NORVASC5 MG PO (12:24)
--- NOTE | 2016-06-15 13:21 | NUR ---
WENT OVER DC PAPERWORK WITH PT PT VERBALIZES UNDERSTANDING. DC TELE. DC PIV WITH CATHETER TIP INTACT. PT WAS GIVEN SCRIPTS FOR NORVASC AND ISOSORBIDE. PT REFUSED WHEELCAHIR AND WALKED OUT WITH .
--- NOTE | 2016-06-21 08:46 | CN ---
PATIENT NAME:MARY MARTINES MEDICAL RECORD: [id number] : 35 LOCATION:D. D.2126 ADMIT DATE: 06/15/16 ACCOUNT: [id number] CONSULTING PHYSICIAN: LEYDI VIDALES MD REFERRING PHYSICIAN: RAYMOND KNIGHT DO DATE OF CONSULTATION: 06/15/2016 DIAGNOSES: 1. Angina. 2. Coronary artery disease. 3. Recent percutaneous transluminal coronary angioplasty stent, left anterior descending and circumflex. 4. Hypertension. 5. Hyperlipidemia. HISTORY OF PRESENT ILLNESS: Mr. Martines presents with recurrent chest discomfort. He was recently admitted and found to have a 90% stenosis of the LAD and circumflex, underwent successful PTCA stent of both vessels with no significant disease of the RCA. He does have diffuse disease throughout. His blood pressure is in the 180-190 range. He is only on losartan for blood pressure at this time. PHYSICAL EXAMINATION: GENERAL APPEARANCE: Well-nourished, well-developed, appears stated age. Level of distress, comfortable. PSYCHIATRIC: Mental status, alert, normal affect. Orientation, oriented to time, place and person. EYES: Lids and conjunctiva, noninjected. No discharge, no pallor. ENT: Lips, teeth, gums, normal dentition. Oropharynx, no cyanosis, no pallor. NECK: Carotid arteries, bilateral normal upstroke, no bruits, no thrills. JUGULAR VEINS: No jugular venous pressure or distention. CERVICAL LYMPH NODES: Nontender, nonenlarged. THYROID: Not enlarged. Nontender. No nodules. LUNGS: Respiratory effort, unlabored. CHEST: Normal curvature. No thoracic deformity. No chest wall tenderness. Percussion, resonant. Auscultation, clear. No wheezes, no rales, no rhonchi. CARDIOVASCULAR: Precordial exam, nondisplaced. No heaves or pericardial thrills. Rate and rhythm, regular. Heart sounds, normal S1, normal S2. No S3, no gallop, no rub. Systolic murmur, not heard. Diastolic murmur, not heard. EXTREMITIES: No cyanosis, no edema. Peripheral pulses, full and equal in all extremities, except as noted. No bruits appreciated. ABDOMEN: Soft, nondistended. Normal aorta. No bruit. Nontender. No masses. Liver, nontender, no hepatomegaly. Spleen, nontender, no splenomegaly. MUSCULOSKELETAL: No joint tenderness. No joint swelling. No erythema. NEUROLOGICAL: Normal gait, normal strength, normal tone. SKIN: Warm and dry. REVIEW OF SYSTEMS: The patient reports easy bruising but reports no swollen glands. The patient reports no fever, no night sweats, no significant weight gain, no significant weight loss. No significant exercise tolerance. The patient reports no dry eyes, no irritation, no vision change. Patient reports no difficulty hearing and no ear pain. Patient reports no frequent nose bleeds or nose and sinus problems. Patient reports on arm pain on exertion. No shortness of breath while lying down. No history of heart murmur. Patient reports no cough, no wheezing or coughing up blood. Patient reports no CONSULT REPORT [id number] BOBBIMARY abdominal pain, no vomiting. Normal appetite. No diarrhea and not vomiting blood. No nausea and no constipation. Patient reports no incontinence. No difficulty urinating. No hematuria. No increased frequency. Patient reports no muscle aches. No weakness, no arthralgias, no back pain. No swelling of the extremities. Patient reports no abnormal mole, no jaundice, no rashes. Reports no loss of consciousness. No weakness and no numbness. No seizures, dizziness, or headaches. The patient reports no depression, no sleep disturbance, feeling safe in a relationship and no alcohol abuse. Patient reports on fatigue. Reports no runny nose or sinus pressure. No itching, no hives, and no frequent sneezing. His troponin is normal. EKG is with no acute changes, this is all secondary to hypertension and his diffuse disease. We will add Norvasc 5 mg b.i.d., Imdur 30 mg b.i.d. Continue his other medications, follow up with [facility] as previously scheduled. TRANSINT:[id number] Voice Confirmation ID: [id number] DOCUMENT ID: [id number] LEYDI VIDALES MD at 0846 CC: [id number] DICTATION DATE: 06/15/16 110 HARM REDUCTION WORKER: 06/15/16 1204 DIS IN 06/15/16 [facility] [address] [place] [address]
== END 2016-06-15 13:23 | disposition home or self-care (01) ==
LOC: D.ER 00:10 → OBSVTIME 02:20 → D.M2 02:20
PROVIDERS: Surgery; ADMIT Family Medicine
DX: I10 Essential (primary) hypertension (principal); R07.9 Chest pain, unspecified; E78.5 Hyperlipidemia, unspecified; K21.9 Gastro-esophageal reflux disease without esophagitis; I25.110 Atherosclerotic heart disease of native coronary artery with unstable angina pectoris; Z95.5 Presence of coronary angioplasty implant and graft; N40.0 Benign prostatic hyperplasia without lower urinary tract symptoms

== ENCOUNTER 2017-08-01 12:59 | Inpatient (IN) | payer MEDICARE, BC ==
[~2017-08-01] VITALS: Ht 182.9 cm; Wt 100.1 kg
[~2017-08-01 12:59] MED LIST changes: +ISOSORBIDE MONO30 M1 PO; +NORVASC5 MG PO
[2017-08-01 13:58] LABS: BASOPHILS 0.1 % (0-2); EOSINOPHILS 1.2 % (0-7); HEMATOCRIT 39.4 % (42.0-54.0); HEMOGLOBIN 13.6 g/dL (13.5-17.5); IMMATURE GRANULOCYTES 0.1 % (0-5); LYMPHOCYTES 15.1 % (15-50); MCH 30.7 pg (26.0-34.0); MCHC 34.5 g/dL (31.0-37.0); MCV 88.9 fL (80.0-100.0); MEAN PLATELET VOLUME 10.2 fL (7.4-10.4); MONOCYTES 6.4 % (2-11); NEUTROPHILS 77.1 % (40-80); PLATELET COUNT 119 10x3/uL (130-400); RBC 4.43 10x6/uL (4.20-6.10); RDW 14.9 % (11.5-14.5); WBC 7.5 10x3/uL (4.8-10.8)
[2017-08-01 14:15] LABS: APTT 27.1 SECONDS (22.8-39.4); INR 1.16 (0.85-1.17); PROTIME 14.4 SECONDS (11.6-15.0)
[2017-08-01 14:19] LABS: ALBUMIN 3.4 g/dL (3.4-5.0); ALKALINE PHOSPHATASE 73 U/L (46-116); ALT (SGPT) 22 U/L (10-68); CALC OSMOLALITY 284 mosm/kg (275-300); CALCIUM 8.4 mg/dL (8.5-10.1); CARBON DIOXIDE 24.1 mmol/L (21.0-32.0); CHLORIDE - SERUM 107 mmol/L (98-107); CREATININE - SERUM 1.4 mg/dL (0.6-1.3); GLUCOSE 146 mg/dL (74-106); POTASSIUM - SERUM 3.6 mmol/L (3.5-5.1); PROTEIN - SERUM 7.5 g/dL (6.4-8.2); SODIUM 141 mmol/L (136-145); UREA NITROGEN 14 mg/dL (7-18); eGFR NON AFRICAN AMERICAN 51 mL/min (90-120)
[2017-08-01 14:30] LABS: D-DIMER-QUANTITATIVE 6.07 ug/mLFEU (0.20-0.54)
[2017-08-01 14:31] LABS: CKMB 4.1 U/L (0.0-3.6); CREATINE KINASE 191 UL (21-232); TROPONIN-I < 0.017 ng/mL (0.000-0.060)
[2017-08-01] MEDS ORDERED: METAMUCIL FIB1 WAFER PO (22:31)
[2017-08-01 22:32] VITALS: BP 167/85; BMI 30.7
[2017-08-02 00:41] VITALS: BP 167/85
[2017-08-02 05:38] LABS: BASOPHILS 0.3 % (0-2); EOSINOPHILS 1.7 % (0-7); HEMOGLOBIN 12.9 g/dL (13.5-17.5); IMMATURE GRANULOCYTES 0.3 % (0-5); LYMPHOCYTES 22.2 % (15-50); MCH 30.4 pg (26.0-34.0); MCHC 33.9 g/dL (31.0-37.0); MCV 89.6 fL (80.0-100.0); MONOCYTES 10.2 % (2-11); NEUTROPHILS 65.3 % (40-80); PLATELET COUNT 125 10x3/uL (130-400); RBC 4.24 10x6/uL (4.20-6.10); RDW 15.1 % (11.5-14.5); WBC 6.9 10x3/uL (4.8-10.8)
[2017-08-02 05:50] VITALS: BP 133/74
[2017-08-02 06:18] LABS: ANION GAP 13.5 mmol/L (8-16); BILIRUBIN - TOTAL 0.63 mg/dL (0.2-1.3); CALCIUM 8.2 mg/dL (8.5-10.1); CARBON DIOXIDE 26.2 mmol/L (21.0-32.0); CREATININE - SERUM 1.3 mg/dL (0.6-1.3); POTASSIUM - SERUM 3.7 mmol/L (3.5-5.1); PROTEIN - SERUM 6.7 g/dL (6.4-8.2)
[2017-08-02 08:13] VITALS: BP 157/68
[2017-08-02 11:25] VITALS: BP 145/76
[2017-08-02 15:44] VITALS: BP 138/77
[2017-08-02] MEDS ORDERED: FLOMAX0.4 MG PO (15:56)
[2017-08-02 18:33] VITALS: Ht 182.9 cm; Wt 100.1 kg
[2017-08-02 20:30] VITALS: BP 145/73
[2017-08-03 00:30] VITALS: BP 145/91
[2017-08-03 04:30] VITALS: BP 158/80
[2017-08-03 05:43] LABS: BASOPHILS 0.3 % (0-2); EOSINOPHILS 2.3 % (0-7); HEMATOCRIT 37.6 % (42.0-54.0); HEMOGLOBIN 12.6 g/dL (13.5-17.5); IMMATURE GRANULOCYTES 0.2 % (0-5); LYMPHOCYTES 22.8 % (15-50); MCH 30.1 pg (26.0-34.0); MCHC 33.5 g/dL (31.0-37.0); MEAN PLATELET VOLUME 9.9 fL (7.4-10.4); MONOCYTES 11.3 % (2-11); NEUTROPHILS 63.1 % (40-80); PLATELET COUNT 117 10x3/uL (130-400); RBC 4.18 10x6/uL (4.20-6.10); RDW 15.1 % (11.5-14.5); WBC 5.7 10x3/uL (4.8-10.8)
[2017-08-03 06:05] LABS: ALBUMIN 2.9 g/dL (3.4-5.0); ANION GAP 15.6 mmol/L (8-16); BILIRUBIN - TOTAL 0.71 mg/dL (0.2-1.3); CALCIUM 8.1 mg/dL (8.5-10.1); CARBON DIOXIDE 23.9 mmol/L (21.0-32.0); CREATININE - SERUM 1.3 mg/dL (0.6-1.3); POTASSIUM - SERUM 3.5 mmol/L (3.5-5.1); PROTEIN - SERUM 6.7 g/dL (6.4-8.2)
[2017-08-03 08:29] VITALS: BP 154/80
[2017-08-03 11:31] VITALS: BP 146/78
[2017-08-03 15:47] VITALS: BP 167/74
[2017-08-03 20:30] VITALS: BP 167/78
[2017-08-04 00:30] VITALS: BP 139/76
[2017-08-04 04:30] VITALS: BP 129/75
[2017-08-04 05:24] LABS: BASOPHILS 0.2 % (0-2); EOSINOPHILS 2.9 % (0-7); HEMATOCRIT 36.6 % (42.0-54.0); HEMOGLOBIN 12.2 g/dL (13.5-17.5); IMMATURE GRANULOCYTES 0.4 % (0-5); LYMPHOCYTES 23.1 % (15-50); MCH 30.1 pg (26.0-34.0); MCHC 33.3 g/dL (31.0-37.0); MCV 90.4 fL (80.0-100.0); MEAN PLATELET VOLUME 9.7 fL (7.4-10.4); MONOCYTES 11.9 % (2-11); NEUTROPHILS 61.5 % (40-80); PLATELET COUNT 117 10x3/uL (130-400); RBC 4.05 10x6/uL (4.20-6.10); RDW 15.4 % (11.5-14.5); WBC 5.5 10x3/uL (4.8-10.8)
[2017-08-04 05:54] LABS: ALBUMIN 2.8 g/dL (3.4-5.0); ANION GAP 12.7 mmol/L (8-16); BILIRUBIN - TOTAL 0.5 mg/dL (0.2-1.3); CREATININE - SERUM 1.4 mg/dL (0.6-1.3); POTASSIUM - SERUM 3.7 mmol/L (3.5-5.1); PROTEIN - SERUM 6.3 g/dL (6.4-8.2)
[2017-08-04 08:21] VITALS: BP 167/71
[2017-08-04 12:15] VITALS: BP 173/91
[2017-08-04 14:16] LABS: CA 19-9 26 U/mL (0-35); CEA 1.7 ng/mL (0.0-4.7); FOLATE (FOLIC ACID) - SERUM 13.1 ng/mL (>3.0)
[2017-08-04 17:24] VITALS: BP 127/70
[2017-08-04 20:00] VITALS: BP 139/85
[2017-08-05 06:02] LABS: BASOPHILS 0.2 % (0-2); EOSINOPHILS 3.6 % (0-7); HEMATOCRIT 37.9 % (42.0-54.0); HEMOGLOBIN 12.6 g/dL (13.5-17.5); IMMATURE GRANULOCYTES 0.5 % (0-5); LYMPHOCYTES 20.2 % (15-50); MCH 30.3 pg (26.0-34.0); MCHC 33.2 g/dL (31.0-37.0); MCV 91.1 fL (80.0-100.0); MEAN PLATELET VOLUME 9.9 fL (7.4-10.4); MONOCYTES 10.5 % (2-11); PLATELET COUNT 125 10x3/uL (130-400); RBC 4.16 10x6/uL (4.20-6.10); RDW 15.4 % (11.5-14.5); WBC 5.6 10x3/uL (4.8-10.8)
[2017-08-05 06:27] LABS: ANION GAP 14.9 mmol/L (8-16); BILIRUBIN - TOTAL 0.72 mg/dL (0.2-1.3); CALCIUM 8.2 mg/dL (8.5-10.1); CARBON DIOXIDE 25.1 mmol/L (21.0-32.0); CREATININE - SERUM 1.3 mg/dL (0.6-1.3); PROTEIN - SERUM 6.8 g/dL (6.4-8.2)
[2017-08-05 06:46] VITALS: BP 143/88
[2017-08-05 08:51] VITALS: BP 156/78
[2017-08-05] MEDS ORDERED: PROTONIX40 MG PO (10:44)
[2017-08-05] MEDS ORDERED: ELIQUIS5 MG PO ×2 (10:45→10:46)
[2017-08-05 12:29] VITALS: BP 121/73
[2017-08-05 13:18] LABS: ACLA - IGG AB <9 GPL U/mL (0-14); ACLA - IGM AB <9 MPL U/mL (0-12)
[2017-08-06 09:18] LABS: PROTEIN S - FREE 90 % (57-157); PROTEIN S - TOTAL 84 % (60-150)
[2017-08-06 12:17] LABS: LUPUS - INTERPRETATION Comment: (()); LUPUS - THROMBIN TIME 21.7 sec (0.0-23.0); LUPUS - dRVVT 33.3 sec (0.0-47.0); PTT-LA 34.6 sec (0.0-51.9)
[2017-08-06 13:20] LABS: PROTEIN S - FREE 92 % (57-157); PROTEIN S - FUNCTIONAL 71 % (63-140); PROTEIN S - TOTAL 84 % (60-150)
[2017-08-07 12:18] LABS: PROTEIN C - ANTIGEN 59 % (60-150); PROTEIN C - FUNCTIONAL 67 % (73-180)
[2017-08-07 20:10] LABS: FACTOR II DNA ANALYSIS Negative (())
== END 2017-08-05 15:35 | disposition home or self-care (01) | DRG 299 ==
LOC: D.ER 12:59 → D.EDHOLD 20:35 → D.M2 20:35
PROVIDERS: Family Medicine; Internal Medicine Hematology & Oncology; Internal Medicine Pulmonary Disease
DX: I82.411 Acute embolism and thrombosis of right femoral vein (principal); I26.99 Other pulmonary embolism without acute cor pulmonale; J98.11 Atelectasis; J90 Pleural effusion, not elsewhere classified; I82.431 Acute embolism and thrombosis of right popliteal vein; N40.0 Benign prostatic hyperplasia without lower urinary tract symptoms; J30.9 Allergic rhinitis, unspecified; K21.9 Gastro-esophageal reflux disease without esophagitis; I25.10 Atherosclerotic heart disease of native coronary artery without angina pectoris; I10 Essential (primary) hypertension; E78.5 Hyperlipidemia, unspecified; D64.9 Anemia, unspecified; I07.1 Rheumatic tricuspid insufficiency; R04.0 Epistaxis; Z95.5 Presence of coronary angioplasty implant and graft

== ENCOUNTER → 2017-10-22 13:52 | Outpatient (CLI) | payer MEDICARE, BC ==
[2017-08-02 18:33] VITALS: BMI 30.7
[~2017-10-22 13:52] MED LIST changes: +ELIQUIS5 MG PO; +FLOMAX0.4 MG PO; +METAMUCIL FIB1 WAFER PO; +PROTONIX40 MG PO
== END | disposition home or self-care (01) ==
LOC: D.RAD 13:52
DX: J90 Pleural effusion, not elsewhere classified (principal); R93.8 Abnormal findings on diagnostic imaging of other specified body structures

== ENCOUNTER → 2018-02-03 12:29 | Outpatient (CLI) | payer MEDICARE, BC ==
[2017-08-02 18:33] VITALS: BMI 30.7
== END | disposition home or self-care (01) ==
LOC: D.RT 12:29
DX: J90 Pleural effusion, not elsewhere classified (principal); I82.401 Acute embolism and thrombosis of unspecified deep veins of right lower extremity

== ENCOUNTER → 2018-05-14 09:08 | Outpatient (CLI) | payer MEDICARE, BC ==
[2017-08-02 18:33] VITALS: BMI 30.7
--- NOTE | 2018-05-19 10:22 | ST ---
PATIENT:MARY MARTINES MEDICAL RECORD: [id number] SEX: M LOCATION:[facility] ORDER #: ADMISSION DATE: 05/14/18 AGE OF PATIENT: 83 REFERRING PHYSICIAN: INTERPRETING PHYSICIAN: LEYDI VIDALES MD DATE OF SERVICE: 05/14/2018 PROCEDURES: Nuclear stress test. INDICATIONS: Angina, coronary artery disease, hypertension, hyperlipidemia. PROCEDURE DETAILS: The patient was exercised on standard Lexiscan protocol with 33 mCi of sestamibi injected at peak stress, 11 mCi were used previously for rest images. FINDINGS: Gated SPECT reveals preserved ejection fraction at 67% with good wall motion and thickening and brightening throughout all segments. SPECT imaging Cardiolite was used as myocardial fusion agent. There is homogeneous uptake throughout all segments at rest and stress with no evidence of inducible ischemia or previous infarction. OVERALL IMPRESSION: 1. This is a normal nuclear stress test with no evidence of inducible ischemia or previous infarction. 2. Gated SPECT reveals a preserved ejection fraction at 67%. In this patient with ongoing symptomatology, the current scan does not suggest the presence of hemodynamically significant coronary artery disease. Evaluate noncardiac etiology of chest pain. TRANSINT:[id number] Voice Confirmation ID: [id number] DOCUMENT ID: [id number] LEYDI VIDALES MD at 1022 CC: [id number] WINTER [id number] DICTATION DATE: 05/15/18 1302 KITCHEN MECHANIC: 05/16/18 0232 DEP CLI 05/14/18 [place] [id number] [place] [address]
== END | disposition home or self-care (01) ==
LOC: D.HCCARDIO 09:08
DX: I25.10 Atherosclerotic heart disease of native coronary artery without angina pectoris (principal)

== ENCOUNTER 2018-06-10 07:56 | Outpatient (CLI) | payer MEDICARE, BC ==
[~2018-06-10] VITALS: Ht 182.9 cm; Wt 100.0 kg
--- NOTE | ~2018-06-10 | HEMODYNAMI ---
PATIENT:MARY MARTINES MEDICAL RECORD: [id number] : 35 LOCATION:[facility] ADMISSION DATE: 06/10/18 Generatedon:06/10/201810:39 Patient name: MARY MARTINES Patient #: [id number] SSN: [id number] : 1935 Date of study: 06/10/2018 Page: Of Hemodynamic Procedure Report Patient Data Patient Demographics Procedure consent was obtained First Name: MARY Gender: Male Last Name: BOBBI : 1935 [facility] Initial: LUPE Age: 83 year(s) Patient #: [id number] Race: SSN: [id number] Additional ID: [id number] Contact details Address: [address] [place] [address] [place] State: [place] City: [place] Zip code: [address] Past Medical History Allergies: No known allergies Admission Admission Data Admission Date: 06/10/2018 Admission Time: 7:56 Height (in.): 70 BSA: 2.17 (m2) Height (cm.): 177.8 BMI: 31.28 (kg/m2) Weight (lbs.): 218 Weight (kg.): 98.88 Lab Results Lab Result Date: 06/10/2018 Lab Result Time: 0:00 Biochemistry Name Units Result Min Max BUN mg/dl 35 --(----)-* 7 18 Creatinine mg/dl 1.6 --(----)-* 0.6 1.3 CBC Name Units Result Min Max Hemoglobin g/dl 12.7 -*(----)-- 13.5 17.5 Procedure Procedure Types Cath Procedure Diagnostic Procedure [facility] w/Coronaries PCI Procedure Coronary Stent Coronary Stent Initial Procedure Description Procedure Date Procedure Date: 06/10/2018 Procedure Start Time: 10:24 Procedure End Time: 10:38 Procedure Staff Name Function Hector Beltre MD Performing Physician Zee Davidson RT Monitor Jp Jones RT Scrub Sancho Leigh RN Nurse Procedure Data Cath Procedure Fluoroscopy Diagnostic fluoroscopy Total fluoroscopy Time: 3.7 time: 3.7 min min Diagnostic fluoroscopy Total fluoroscopy dose: 367 dose: 367 mGy mGy Contrast Material Contrast Material Type Amount (ml) Isovue 300 107 Entry Location Entry Primary Successful Side Size Upsize Upsize Entry Closure Gallagher ccessful Closure Location (Fr) 1 (Fr) 2 (Fr) Remarks Device Remarks Radial Right 6 Fr Mechanical artery Short Compression Estimated blood loss: 10 ml Diagnostic catheters Device Type Used For End Catheter Placement DIAGNOSTIC [place] 110cm 5 Procedure Fr catheter ([id number]) DIAGNOSTIC AR2 MOD 5 Fr Procedure catheter ([id number]) Procedure Complications No complications Procedure Medications Medication Administration Route Dosage Oxygen etCO2 Nasal cannula 2 l/min Heparin Flush Bag added to field 2 bags (1000units/500ml NS) 0.9% NaCl I.V. 100 ml/hr Lidocaine 2% added to field 20 Radial Cocktail added to field 1 syringe (Verapomil 2mg/Nitro 400mcg/Heparin 1500units) Fentanyl I.V. 50 mcg Versed I.V. 1 mg Fentanyl I.V. 50 mcg Versed I.V. 1 mg Radial Cocktail I.A. 1 syringe (Verapomil 2mg/Nitro 400mcg/Heparin 1500units) Heparin Bolus I.V. 4000 units Integrilin (Bolus I.V. 9 ml 2mg/ml) Integrilin (Bolus wasted 1 ml 2mg/ml) Plavix P.O. 600 mg Hemodynamics Rest BSA: 2.17 (m2) HGB: 12.7 (g/dl) O2 Consumption: Estimated: 238.35 (ml/min) O2 Co nsumption indexed: Estimated:109.84 (ml/min/m) Heart Rate: 60 (bpm) Snapshots Pre Cath Intra NCS Post Cath Vital Signs Time Heart Resp SPO2 etCO2 NIBP (mmHg) Rhythm Pain Sedation Rate (ipm) (%) (mmHg) Status Level (bpm) 10:13:56 60 17 96 0 131/77(99) NSR 0 (11) 10(A) , No pain 10:18:14 61 16 93 0 149/79(119) NSR 0 (11) 10(A) , No pain 10:22:28 61 16 92 0 116/69(91) NSR 0 (11) 10(A) , No pain 10:26:36 66 16 90 0 105/59(80) NSR 0 (11) 9(A) , No pain 10:30:50 62 17 88 0 108/62(76) NSR 0 (11) 9(A) , No pain 10:35:00 67 16 92 0 100/59(85) NSR 0 (11) 9(A) , No pain 10:36:46 65 17 92 0 106/58(86) NSR 0 (11) 10(A) , No pain Medications Time Medication Route Dose Verified Delivered Reason Not es Effectiveness by by 10:17:50 Oxygen etCO2 2 l/min Hector Kingsley Per physician Nasal Patt Leigh RN cannula 10:17:59 Heparin Flush added 2 bags Hector Kingsley used for Bag to Patt Leigh RN procedure (1000units/500ml field NS) 10:18:09 0.9% NaCl I.V. 100 Hector Kingsley Per physician ml/hr Patt Leigh RN 10:18:21 Lidocaine 2% added 20ml Hector Kingsley used for to vial Patt Leigh rhia field 10:18:41 Radial Cocktail added 1 Hector Kingsley used for (Verapomil to syringe Patt Leigh RN procedure 2mg/Nitro field 400mcg/Heparin 1500units) 10:22:31 Fentanyl I.V. 50 mcg Hector Kingsley for sedation Patt Leigh RN 10:22:37 Versed I.V. 1 mg Hector Kingsley for sedation Patt Leigh RN 10:24:40 Fentanyl I.V. 50 mcg Hector Kingsley for sedation Patt Leigh RN 10:24:45 Versed I.V. 1 mg Hector Ganty for sedation Patt Leigh RN 10:25:50 Radial Cocktail I.A. 1 Hector Young for (Verapomil syringe Patt Beltre MD vasodilation 2mg/Nitro 400mcg/Heparin 1500units) 10:32:16 Heparin Bolus I.V. 4000 Hector Kingsley for units Patt Leigh RN anticoagulation 10:32:28 Integrilin I.V. 9 ml Hector Kingslye for (Bolus 2mg/ml) Patt Leigh RN antiplatelet therapy 10:32:35 Integrilin wasted 1 ml Hector adams (Bolus 2mg/ml) Patt Leigh RN antiplatelet therapy 10:35:26 Plavix P.O. 600 mg Hector Leigh RN antiplatelet therapy Procedure Log Time Note 9:21:33 Signed procedure consent form obtained from patient. 9:21:34 Time tracking: Regular hours (M-F 7:00 - 5:00) 9:21:37 Plan of Care:Hemodynamics will remain stable., Cardiac rhythm will remain stable., Comfort level will be maintained., Respiratory function will remain adequate., Patient/ family verbilizes understanding of procedure., Procedure tolerated without complication., Recovers from procedure without complications.. 9:21:39 Diagnostic Cath status Elective 9:21:48 H&P Date Dictated: 06/08/2018 Within 30 days and on chart., H&P Addendum completed by physician on day of procedure. (MUST COMPLETE FOR ALL OUTPATIENTS). 9:21:55 Patient allergic to No known allergies 9:27:06 Patient Height : 70 inches 9:27:11 Patient Weight : 218 lbs 9:28:57 Lab Result : BUN 35 mg/dl 9:28:57 Lab Result : Creatinine 1.6 mg/dl 9:28:57 Lab Result : Hemoglobin 12.7 g/dl 9:45:15 Jp STEVENS(R) sent for patient. Start room use. 10:01:03 Patient received from Pre/Post Procedure Room to CCL 1 Alert and oriented. Tansferred to table in Supine position. 10:01:05 Warm blankets applied, and jakob hugger turned on for patient comfort. 10:01:05 Correct patient and procedure confirmed by team. 10:01:06 ECG and BP/O2 sat monitors applied to patient. 10:12:48 Vital chart was started 10:13:53 Baseline sample Acquired. 10:13:58 Rhythm: sinus rhythm 10:13:59 Full Disclosure recording started 10:14:00 Pre-procedure instructions explained to patient. 10:14:01 Pre-op teaching completed and patient verbalized understanding. 10:14:02 Family in patients room. 10:14:03 Patient NPO since Midnight. 10:14:05 Is patient on blood thinner?Yes 10:14:24 LAST DOSE OF ELIQUIS 2.11 10:14:29 Patient diabetic? No. 10:14:32 Previous problem with sedation/anesthesia? No ? 10:14:34 Snore? Yes 10:14:36 Sleep apnea? No 10:14:38 Deviated septum? No 10:14:39 Opens mouth fully? Yes 10:14:41 Sticks out tongue? Yes 10:14:43 Airway obstruction? No ? 10:14:45 Dentures? No ? 10:14:48 Modified David's test Ulnar < 7 seconds 10:14:50 Patient pain scale 0/10 ?. 10:14:54 IV patent on arrival in left hand with 0.9% NaCl at [facility]. 10:14:58 Lab results completed and on chart. 10:15:01 Right Radial & Right Groin area was prepped with chlora-prep and draped in sterile fashion 10:15:02 Alarms reviewed by R. N. 10:15:02 Sharps counted by scrub and verified by R.N. 10:16:07 Use device set Radial Dx or PCI 10:16:09 ACIST Syringe (84533) opened to sterile field. 10:16:10 Bag Decanter () opened to sterile field. 10:16:11 ACIST Manifold (97284) opened to sterile field. 10:16:12 ACIST Hand Control (41772) opened to sterile field. 10:16:12 Tegaderm 4 x 4 (1626W) opened to sterile field. 10:16:14 Medline Cath Pack ([id number]) opened to sterile field. 10:16:15 DIAGNOSTIC WIRE .035 260cm J wire (170561) opened to sterile field. 10:16:15 MBrace Wrist Support ([id number]) opened to sterile field. 10:16:16 SHEATH 6FR Slender (40-4561) opened to sterile field. 10:17:50 Oxygen 2 l/min etCO2 Nasal cannula was administered by Sancho Leigh RN; Per physician; 10:17:59 Heparin Flush Bag (1000units/500ml NS) 2 bags added to field was administered by Sancho Leigh RN; used for procedure; 10:18:09 0.9% NaCl 100 ml/hr I.V. was administered by Sancho Leigh RN; Per physician; 10:18:21 Lidocaine 2% 20ml vial added to field was administered by Sancho Leigh RN; used for procedure; :: Radial Cocktail (Verapomil 2mg/Nitro 400mcg/Heparin 1500units) 1 syringe added to field was administered by Sancho Leigh RN; used for procedure; : --------ALL STOP TIME OUT------ : Final Timeout: patient, procedure, and site verified with staff and physician. All members of the team are in agreement. 10::43 Right Radial & Right Groin site verified by team. 10::47 Fire Safety Assessment: A--An alcohol-based skin anteseptic being used preoperatively., C--Open oxygen or nitrous oxide is being used., D--An ESU, laser, or fiber-optic light is being used. 10::49 Physical assessment completed. ASA score P 2 - A patient with mild systemic disease as per Hector Beltre MD. 10::52 Sedation plan: IV Moderate Sedation Medication:Versed, Fentanyl 10::31 Fentanyl 50 mcg I.V. was administered by Sancho Leigh RN; for sedation; 10::37 Versed 1 mg I.V. was administered by Sancho Leigh RN; for sedation; 10:24:04 Zero performed for pressure channel P1 10:24:07 Procedure started. 10:24:13 Zero performed for pressure channel P1 10:24:23 Local anesthetic to right radial artery with Lidocaine 2% by Hector Beltre MD.INITIAL ACCESS ONLY 10:24:40 Fentanyl 50 mcg I.V. was administered by Sancho Leigh RN; for sedation; 10:24:45 Versed 1 mg I.V. was administered by Sancho Leigh RN; for sedation; 10:25:38 A 6 Fr Short sheath was inserted into the Right Radial artery 10:25:50 Radial Cocktail (Verapomil 2mg/Nitro 400mcg/Heparin 1500units) 1 syringe I.A. was administered by Hector Beltre MD; for vasodilation; 10:26:03 A DIAGNOSTIC [place] 110cm 5 Fr catheter (176348) was advanced over the wire and used for Procedure. 10::22 LV gram done using CORDERO 10:: Injector settings: Ml/sec: 7, Volume: 15, 10:26:36 EF : 60 % 10:27:22 LCA angiography performed. 10:28:36 Catheter exchanged over wire. 10:29:20 A DIAGNOSTIC AR2 MOD 5 Fr catheter ([id number]) was advanced over the wire and used for Procedure. 10:29:22 CHOICE PT Extra Support 182cm wire ([id number]) opened to sterile field. 10:29:23 INFLATOR Merit BasixCompak (ID1088) opened to sterile field. 10:30:51 RCA angiography performed. 10:31:05 Catheter exchanged over wire. 10:31:17 GUIDE 6FR XBLAD 3.5 catheter ([id number]) opened to sterile field. 10:31:54 6 Fr XBLAD 3.5 guide catheter was inserted over the wire 10:32:16 Heparin Bolus 4000 units I.V. was administered by Sancho Leigh RN; for anticoagulation; 10:32:28 Integrilin (Bolus 2mg/ml) 9 ml I.V. was administered by Sancho Leigh RN; for antiplatelet therapy; 10:32:35 Integrilin (Bolus 2mg/ml) 1 ml wasted was administered by Sancho Liegh RN; for antiplatelet therapy; 10:33:09 CHOICE ES 182 wire advanced. 10:33:10 Wire advanced across lesion. 10:33:53 Place stent Inflation Number: 1 A INTEGRITY RX 3.0 x 09 stent ([id number]) was prepped and advanced across the Mid CX. The stent was deployed at 17 FEDE for 0:10 (min:sec). 10:34:12 Stent catheter was removed intact over wire. 10:34:12 Wire removed. 10:34:12 Guide catheter removed. 10:34:20 Procedure ended.(Physican Out) 10:35:26 Plavix 600 mg P.O. was administered by Sancho Leigh RN; for antiplatelet therapy; 10:35:43 ZEPHYR REGULAR TR BAND NO COST(029964) opened to sterile field. 10:35:51 Sheath removed intact; hemostasis achieved with Mechanical Compression to the Right Radial artery. 10:36:02 Fluoroscopy time 03.70 minutes. 10:36:10 Flurop Dose total: 367 10:36:10 Fluoroscopy dose: 367 mGy 10:36:14 Contrast amount:Isovue 300 107ml. 10:36:15 Sharps counted by scrub and verified by R.N. 10:36:18 TR band inflated with 10cc of air. 10:36:22 Post-procedure physical assessment completed. ASA score P 2 - A patient with mild systemic disease as per Hector Beltre MD. 10:36:26 Post procedure rhythm: sinus rhythm 10:36:30 Estimated blood loss: 10 ml 10:36:32 Post procedure instruction explained to patient.Patient verbalizes understanding. 10:36:32 Patient needs reinforcement of post procedure teaching. 10:36:49 Procedure type changed to Cath procedure, Diagnostic procedure, LHC, LHC w/Coronaries, PCI procedure, Coronary Stent, Coronary Stent Initial 10:38:33 Procedure and supply charges have been captured, reviewed, submitted and are correct. 10:38:36 Procedure Complication : No complications 10:38:37 Vital chart was stopped 10:38:38 See physician's report for complete and final results. 10:38:39 Report given to Pre/Post Procedure Room. 10:38:42 Patient transfered to Pre/Post Procedure Room with Bed. 10:38:43 Procedure ended. 10:38:43 Full Disclosure recording stopped 10:38:46 End room use (Document Last) Intervention Summary Intervention Notes Time ActionType Lesion and Equipment Action# Pressure Duration Attributes Used 10:33:53 Place stent Mid CX INTEGRITY RX 1 17 00:10 3.0 x 09 stent ([id number]) Device Usage Item Name Manufacture Quantity Catalog Number Hospital Part Current Mini mal Lot# / Charge Number Stock Stock Serial# Code ACIST Acist 1 12364 107742 202550 497444 20 Syringe Medical (23058) Systems Inc Bag Decanter Microtek 1 2001S 780857 50827 319684 5 (2001S) Medical Inc. ACIST Acist 1 61640 337064 726110 760375 5 Manifold Medical (89217) Systems Inc ACIST Hand Acist 1 03710 111848 648078 141548 5 Control Medical (93048) Systems Inc Tegaderm 4 x 3M 1 1626W 351943 208245 306406 5 4 (1626W) Medline Cath Medline 1 [id number] 884085 58444 282743 5 Pack ([id number]) DIAGNOSTIC St Jhonatan 1 710768 997050 832321 493363 30 WIRE .035 260cm J wire (748950) MBrace Wrist Advanced 1 727-5603-00 331942 68157 274225 5 Support Vascular (672763473) Dynamics SHEATH 6FR Terumo 1 [id number] 851408 616954 435225 5 Slender (80-1060) DIAGNOSTIC Terumo 1 40-0863 387971 646344 171048 5 [place] 110cm 5 Fr catheter (947393) DIAGNOSTIC Cardinal 1 [id number] 808400 995967 012304 20 AR2 MOD 5 Fr Health catheter (863734X) CHOICE PT [place] 1 [id number] 744970 730845 235004 5 Extra Scientific Support 182cm wire (3789017P8) INFLATOR Merit 1 AM3082 690000 983821 767206 15 [facility] Medical BasixCompak (XZ1333) GUIDE 6FR Cardinal 1 [id number] 667893 942119 369245 10 XBLAD 3.5 Health catheter (73196407) INTEGRITY RX Medtronic 1 [id number] 834923 953662 324379 5 [id number] 3.0 x 09 stent ([id number]) ZEPHYR Cardinal 1 735573 731721 960869 5 REGULAR TR Health BAND NO COST(434582) Signature Audit Duson Stage Time Signature Unsigned Intra-Procedure 06/10/2018 Zee Davidson 10:39:23 AM RT(R) Signatures Monitor : Zee Davidson Signature : RT Date : Time : [facility] [address] [place] [address]
[2018-06-10] MEDS ORDERED: METOPROLOL TART50 MG PO (08:18)
[2018-06-10] MEDS ORDERED: PROSCAR5 MG PO (08:18)
[2018-06-10 08:28] VITALS: BP 167/66; Ht 182.9 cm; Wt 100.0 kg
[2018-06-10 08:40] LABS: BASOPHILS 0.1 % (0-2); EOSINOPHILS 0.4 % (0-7); HEMATOCRIT 38.7 % (42.0-54.0); HEMOGLOBIN 12.7 g/dL (13.5-17.5); IMMATURE GRANULOCYTES 0.4 % (0-5); LYMPHOCYTES 17.7 % (15-50); MCH 26.6 pg (26.0-34.0); MCHC 32.8 g/dL (31.0-37.0); MCV 81.1 fL (80.0-100.0); MEAN PLATELET VOLUME 9.7 fL (7.4-10.4); MONOCYTES 7.1 % (2-11); NEUTROPHILS 74.3 % (40-80); RBC 4.77 10x6/uL (4.20-6.10); RDW 14.6 % (11.5-14.5); WBC 9.9 10x3/uL (4.8-10.8)
[2018-06-10 08:43] LABS: PLATELET COUNT 196 10x3/uL (130-400)
[2018-06-10 08:47] LABS: CALCIUM 8.6 mg/dL (8.5-10.1); CARBON DIOXIDE 23.5 mmol/L (21.0-32.0); CREATININE - SERUM 1.6 mg/dL (0.6-1.3); POTASSIUM - SERUM 4.5 mmol/L (3.5-5.1)
[2018-06-10] MEDS ORDERED: PLAVIX75 MG PO (11:10)
--- NOTE | 2018-06-10 11:10 | NUR ---
RIGHT RADIAL Z BAND IN PLACE. NO BLEEDING/HEMATOMA NOTED. DENIES NAUSEA. VSS.
--- NOTE | 2018-06-10 11:45 | NUR ---
PT SITTING UP IN BED. VSS. RIGHT RADIAL Z BAND IN PLACE. NO BLEEDING/HEMATOMA NOTED. PT ATE SANDWICH. DENIES NAUSEA. WILL CONTINUE TO MONITOR.
--- NOTE | 2018-06-10 12:15 | NUR ---
VSS. RIGHT WRIST Z BAND IN PLACE. NO BLEEDING/HEMATOMA NOTED. FAMILY AT BEDSIDE. DR. VIDALES ROUNDED AND SPOKE WITH PT AND PT'S FAMILY.
--- NOTE | 2018-06-10 12:45 | NUR ---
VSS. RIGHT WRIST Z BAND IN PLACE. NO BLEEDING/HEMATOMA NOTED.
--- NOTE | 2018-06-10 13:45 | NUR ---
BEGIN AIR REMOVAL PROTOCOL, NO S/S OF BLEEDING OR HEMATOMA. VSS ON ROOM AIR.
--- NOTE | 2018-06-10 14:15 | NUR ---
REMAINING AIR REMOVED FROM Z BAND, NO S/S OF BLEEDING OR HEMATOMA. IV REMOVED. EDUCATION GIVEN TO PATIENT AND SPOUSE REGARDING DISCHARGE INSTRUCTIONS AND MEDICATIONS, UNSURE IF DR. VIDALES TOLD PATIENT TO CONTINUE TAKING ELIQUIS - WILL VERIFY WITH PHYSICIAN.
--- NOTE | 2018-06-10 14:30 | NUR ---
PATIENT AWAKE, VSS ON ROOM AIR. RIGHT Z BAND IN PLACE, BEGINNING AIR REMOVAL PROTOCOL, NO S/S OF BLEEDING OR HEMATOMA.
--- NOTE | 2018-06-10 14:35 | NUR ---
PATIENT VOIDED VIA URINAL WITH NO DIFFICULTY. VSS ON ROOM AIR. DRESSING ON RIGHT RADIUS IS CDI,NO S/S OF BLEEDING OR HEMATOMA. CONFIRMED WITH PHYSICIAN THAT PATIENT IS TO DISCONTINUE ELIQUIS - INFORMED PATIENT AND OF THIS. PATIENT TRANSPORTED VIA WHEELCHAIR TO CAR WITH SPOUSE DRIVING, ALL BELONGINGS WITH PATIENT.
--- NOTE | 2018-06-15 11:45 | OP ---
PATIENT NAME: MARY MARTINES MEDICAL RECORD: [id number] :35 LOCATION:D.CAT ADMISSION DATE: SURGEON: LEYDI VIDALES MD DATE OF OPERATION: 06/10/2018 PROCEDURES: 1. PTCA stent left circumflex. 2. Left heart catheterization. 3. Selective coronary angiography. 4. Left ventriculogram. INDICATION: Angina and coronary artery disease. PROCEDURE IN DETAIL: After informed consent was obtained and after a detailed description of risks, benefits as well as alternative therapies, the patient elected to proceed with angiogram and angioplasty. The right radial area was prepped and draped in normal sterile fashion. Right radial artery was cannulated via modified Seldinger technique with placement of 6-Sami sheath. All catheters exchanged through this sheath. FINDINGS: Left ventriculogram performed in standard 30-degree CORDERO view, reveals good cardiac wall motion throughout all segments. Overall ejection fraction estimated 60%. SELECTIVE CORONARY ANGIOGRAPHY: 1. Left main is with no significant angiographic disease. 2. Left anterior descending has previously placed stents, these are widely patent. No disease elsewise throughout the LAD or its branches. 3. The left circumflex has previously placed stents, these are widely patent; however, there is 85% stenosis proximal to the previously placed stents. 4. Right coronary has mild irregularities, but no flow-limiting stenosis. PTCA STENT OF THE LEFT CIRCUMFLEX: The stent used was a 3.0 x 9 mm Integrity. Result was 0% residual stenosis. OVERALL IMPRESSION: Successful percutaneous transluminal coronary angioplasty stent of the left circumflex going from 85% initial stenosis to 0% residual. TRANSINT:[id number] Voice Confirmation ID: [id number] DOCUMENT ID: [id number] LEYDI VIDALES MD at 1145 CC: [id number] DICTATION DATE: 06/10/18 1037 PROPULSION MACHINERY SERVICE ENGINEER: 06/10/[address] [facility] CLI 06/10/18 [place] [id number] [place] [address]
== END 2018-06-10 14:35 ==
LOC: D.CATH 07:56
PROVIDERS: Internal Medicine Interventional Cardiology
DX: I25.119 Atherosclerotic heart disease of native coronary artery with unspecified angina pectoris (principal)

== ENCOUNTER → 2018-09-30 08:44 | Outpatient (CLI) | payer MEDICARE, BC ==
[2018-06-10 08:28] VITALS: BMI 29.9
[~2018-09-30 08:44] MED LIST changes: +METOPROLOL TART50 MG PO; +PROSCAR5 MG PO
== END | disposition home or self-care (01) ==
LOC: D.RAD 08:44 → D.CT 09:30 → D.RT 10:00
PROVIDERS: ATTEND Internal Medicine Pulmonary Disease
DX: J30.9 Allergic rhinitis, unspecified (principal); J32.9 Chronic sinusitis, unspecified; J90 Pleural effusion, not elsewhere classified

== ENCOUNTER → 2019-07-12 10:03 | Outpatient (CLI) | payer MEDICARE, BC ==
[2018-06-10 08:28] VITALS: BMI 29.9
== END | disposition home or self-care (01) ==
LOC: D.CT 10:03
PROVIDERS: ATTEND Internal Medicine Hematology & Oncology
DX: E53.8 Deficiency of other specified B group vitamins (principal); I26.99 Other pulmonary embolism without acute cor pulmonale; D68.59 Other primary thrombophilia